=== PATIENT | female | born 1970 | race Hispanic/Latino ===

== ENCOUNTER 2019-06-14 15:59 | Emergency (ER) | payer SELFPAY ==
[~2019-06-14] VITALS: Ht 162.6 cm; Wt 83.9 kg
[2019-06-14] MEDS ORDERED: SODIUM CHLORIDE 0.9% 50ML 0 ML ONE (16:35)
[2019-06-14] MEDS ORDERED: IOPAMIDOL 370 MG/ML 200 ML INFUS..BTL INJ ONE (16:36)
[2019-06-14] MEDS ORDERED: KETOROLAC TROMETHAMINE 30 MG/ML VIAL ONE (16:54)
[2019-06-14] MEDS ORDERED: KETOROLAC TROMETHAMINE 30 MG/ML VIAL IV ONE (17:00)
--- NOTE | 2019-06-14 17:21 | Diagnostic Imaging Report ---
EXAM: CT Abdomen and Pelvis WITHOUT intravenous contrast INDICATION: Abdominal pain COMPARISON: None. TECHNIQUE: Abdomen and pelvis were scanned utilizing a multidetector helical scanner from the lung base to the pubic symphysis without administration of IV contrast. Coronal and sagittal reformations were obtained. Routine protocol was performed. IV CONTRAST: 100mL of Isovue 370 ORAL CONTRAST: Water RADIATION DOSE: Total DLP: 739.7 mGy*cm Dose modulation, iterative reconstruction, and/or weight based adjustment of the mA/kV was utilized to reduce the radiation dose to as low as reasonably achievable. FINDINGS: LOWER THORAX: Normal. HEPATOBILIARY: Diffuse hepatic steatosis. No focal liver lesion. Decompressed gallbladder. SPLEEN: No splenomegaly. PANCREAS: No focal masses or ductal dilatation. ADRENALS: No adrenal nodules. KIDNEYS/URETERS: No hydronephrosis, stones, or solid mass lesions. PELVIC ORGANS/BLADDER: Unremarkable. PERITONEUM / RETROPERITONEUM: No free air or fluid. LYMPH NODES: No lymphadenopathy. VESSELS: Unremarkable. GI TRACT: No distention or wall thickening. Normal appendix. BONES AND SOFT TISSUES: Unremarkable. IMPRESSION: No acute findings in the abdomen or pelvis. Diffuse hepatic steatosis. Signed by: Anastasia Corrigan MD on 06/14/2019 5:18 PM
[2019-06-14 17:33] VITALS: BP 125/60
== END 2019-06-14 17:43 | disposition home or self-care (01) ==
LOC: FSED 15:59
DX: R10.11 Right upper quadrant pain (principal); R11.0 Nausea; K76.0 Fatty (change of) liver, not elsewhere classified
CPT/HCPCS: 74176; 80048; 80076; 81003; 81025; 85025; 99284; J1885; Q9967

== ENCOUNTER 2023-01-25 17:59 | Emergency (ER) | payer OTHER ==
[~2023-01-25] VITALS: Ht 162.6 cm; Wt 93.0 kg
[2023-01-25] MEDS ORDERED: FAMOTIDINE 20 MG/2 ML VIAL IV STA (18:10)
[2023-01-25] MEDS ORDERED: ASPIRIN 325 MG TAB PO ONE (18:15)
[2023-01-25] MEDS ORDERED: LEVOTHYROXINE50 MC1 (18:28)
[2023-01-25] MEDS ORDERED: ASPIRIN 325 MG TAB ONE (18:30)
[2023-01-25] MEDS ORDERED: FAMOTIDINE 20 MG/2 ML VIAL IV ONE (18:30)
[2023-01-25 19:14] VITALS: O2SAT 98
== END 2023-01-25 19:50 | disposition home or self-care (01) ==
LOC: MERGE 18:02 → FSED 18:02 → UNMERGE 18:02 → FSED 19:50
DX: R07.9 Chest pain, unspecified (principal); I34.1 Nonrheumatic mitral (valve) prolapse; F41.9 Anxiety disorder, unspecified; R94.31 Abnormal electrocardiogram [ECG] [EKG]; Z82.49 Family history of ischemic heart disease and other diseases of the circulatory system; Z20.822 Contact with and (suspected) exposure to COVID-19
CPT/HCPCS: 0223U; 36415; 71045; 80053; 80307; 81003; 82550; 84484; 85025; 93005; 96374; 99284

== ENCOUNTER 2024-10-14 16:30 | Emergency (ER) | payer OTHER ==
[~2024-10-14] VITALS: Ht 162.6 cm; Wt 95.7 kg
[~2024-10-14 16:30] MED LIST: LEVOTHYROXINE50 MC1
[2024-10-14] MEDS ORDERED: IOPAMIDOL 370 MG/ML 100 ML INFUS..BTL INJ ONE (17:49)
[2024-10-14] MEDS: KETOROLAC TROMETHAMINE 30 MG/ML VIAL IV STA (18:26)
[2024-10-14] MEDS: LEVOFLOXACIN 750MG/D5W 150ML 150 ML IV SCH (18:27)
[2024-10-14] MEDS ORDERED: DIPHENHYDRAMINE HCL INJ 50 MG/ML VIAL ONE (18:49)
[2024-10-14] MEDS: DIPHENHYDRAMINE HCL INJ 50 MG/ML VIAL IV ONE (18:55)
[2024-10-14] MEDS: SODIUM CHLORIDE 0.9% 1000ML 1,000 ML IV SCH (18:56)
[2024-10-14] MEDS: SILVER NITRATE SWABS TOP ONE (20:33)
[2024-10-14] MEDS: DOXYCYCLINE HYCLATE TABLET 100 MG TAB PO ONE (20:33)
[2024-10-14] MEDS ORDERED: DOXYCYCLINE HY100 MG PO (20:40)
[2024-10-14 20:46] VITALS: PULSE 62; RESP 18; TEMP 98.3
[2024-10-14 20:53] VITALS: BP 109/56; O2SAT 97
== END 2024-10-14 20:57 | disposition home or self-care (01) ==
LOC: FSED 16:36
DX: L03.311 Cellulitis of abdominal wall (principal); L08.82 Omphalitis not of newborn; R10.30 Lower abdominal pain, unspecified; E03.9 Hypothyroidism, unspecified; K76.0 Fatty (change of) liver, not elsewhere classified
CPT/HCPCS: 74177; 80048; 80076; 81003; 82553; 84484; 85025; 99284; J1200; J1885; J7030; Q9967